=== PATIENT | male | born 1985 | race African-American/Black ===

== ENCOUNTER 2016-09-02 06:04 | Emergency (ER) | payer SELFPAY ==
[~2016-09-02] VITALS: Ht 182.9 cm; Wt 75.0 kg
[~2016-09-02 06:04] MED LIST: CYCL-36 PO; NAPR500 PO
[2016-09-02 06:09] VITALS: BP 141/86; PULSE 81; RESP 16; TEMP 97.9; O2SAT 100
[2016-09-02] MEDS ORDERED: CIPROFLOXACIN 500 MG TAB PO ONE (06:30)
[2016-09-02] MEDS ORDERED: TETANUS/DIPHTHERIA TOXOID ADULT 0.5 ML VIAL IM ONE (06:30)
--- NOTE | 2016-09-02 06:30 | PD ---
HPI Chief Complaint: Injury Time Seen by Provider: 06:24 Travel History International Travel<30 days: No Contact w/Intl Traveler<30days: No Traveled to known affect area: No History of Present Illness HPI 31-year-old black male presents to emergency department with complains of a plantar puncture wound to the right foot which occurred on Thursday. He states that he was working over a friend's house cutting the grass when he stepped on a piece of wood containing a nail. He states the nail punctured through his tennis shoe into his foot. He states that he jerked his foot quickly back removing the nail from his foot. He states that he did not think it wasn't very deep into the foot. He did not think it hit a bone. He states that the pain is still present but much improved from the initial injury. He presents for evaluation. He has not had a tetanus shot over 5 years. He denies any numbness or tingling. No foreign body sensation. Pain is mild to moderate. He denies any discharge. PFSH Past Medical History Medical History: Denies Significant Hx Immunizations Current: Yes (TB SHOT IN ALF July) Tetanus Vaccination: > 5 Years Influenza Vaccination: No Past Surgical History Surgical History: No Previous Surgery Social History Alcohol Use: Yes (OCCASIONALLY) Tobacco Use: No Substance Use: Yes (SMOKES MARIJUANA AT LEAST TWICE A DAY) Allergies-Medications (Allergen,Severity, Reaction): Coded Allergies: No Known Allergies (Verified , 09/02/16) Reported Meds & Prescriptions Reported Meds & Active Scripts Active Diclofenac Sodium DR (Diclofenac Sodium) 75 Mg Tabdr 75 Mg PO BID Cipro (Ciprofloxacin HCl) 500 Mg Tab 500 Mg PO BID Review of Systems Except as stated in HPI: all other systems reviewed are Neg Physical Exam Narrative GENERAL: This is a well-nourished, well-developed patient, in no apparent distress. SKIN: No rashes, ecchymoses or lesions. Warm and dry. HEAD: Atraumatic. Normocephalic. EYES: PERRL, EOMI, no discharge or injection. No scleral icterus. EARS: Clear NOSE: Nasal turbinates appear normal. THROAT: Mucosa pink and moist. Airway patent. NECK: Trachea midline. supple, moves head freely. LUNGS: Clear to auscultation. CV: Regular in rhythm. ABDOMEN: Soft nontender. EXT: No clubbing cyanosis or edema. Patient has a plantar puncture wound to the mid forefoot at the arch and the area of the base of the second metatarsal. There is a scant amount of serous drainage on palpation of the wound. Positive tenderness. No fluctuance or pointing. No pus. No obvious foreign body. Patient has intact sensation with good distal pulses. There is no erythema or warmth. Data Data Last Documented VS Vital Signs Date Time Temp Pulse Resp B/P Pulse Ox O2 Delivery O2 Flow Rate FiO2 09/02/16 06:09 97.9 81 16 141/86 100 Room Air Orders Tetanus/Diphtheria Tox Adult (Tetanus/Di (09/02/16 06:30) Ciprofloxacin (Cipro) (09/02/16 06:30) Foot, Complete ([id number]) (09/02/16 06:19) [facility] Medical Decision Making Medical Screen Exam Complete: Yes Emergency Medical Condition: Yes Medical Record Reviewed: Yes Interpretation(s) Right foot: Negative for fracture. No foreign body. Differential Diagnosis MDM: High Differential diagnoses: Fracture, sprain, strain, dislocation, contusion, neurovascular injury, plantar puncture wound Narrative Course Patient's tetanus status updated. Patient given Cipro 500 mg by mouth. X-ray of the right foot Diagnosis Primary Impression: Puncture wound of plantar aspect of right foot Additional Impressions: right plantar puncture wound right plantar puncture wound Patient Instructions: General Instructions Additional Instructions: Rest. Elevation. Daily wound care with soap, water, Neosporin. Cipro. Recheck with a primary care doctor or a restaurant kitchen and service manager in the next 2-3 days. Med/Other Pt SpecificInfo: Prescription(s) given Scripts Diclofenac Sodium DR 75 Mg Tabdr75 Mg PO BID #20 TAB Prov:Annemarie Britt MD 09/02/16 Ciprofloxacin (Cipro)500 Mg Tbd417 Mg PO BID #20 TAB Prov:Annemarie Britt MD 09/02/16 Disposition: 01 DISCHARGE HOME Condition: Stable Fede Aguilar Sep 02, 2016 06:30
[2016-09-02] MEDS ORDERED: CIPR-9 PO (06:31)
[2016-09-02] MEDS ORDERED: DICL75TA PO (06:31)
--- NOTE | 2016-09-02 07:08 | RADRPT ---
EXAM DATE/TIME: 09/02/2016 06:18 [facility] COMPARISON: No previous studies available for comparison. INDICATIONS : Foreign body. MEDICAL HISTORY : None. SURGICAL HISTORY : None. ENCOUNTER: Initial ACUITY: 3 days PAIN SCORE: 4/10 LOCATION: Right foot. FINDINGS: No definite fractures, or dislocations are identified. No definite lytic or sclerotic lesion is seen . The joint spaces are well maintained. There is no evidence for a radiopaque foreign body for techn ique. CONCLUSION: Unremarkable study. Sofiya Manjarrez MD on September 02, 2016 at 7:07 Board Certified Radiologist. This report was verified electronically.
== END 2016-09-02 06:54 | disposition home or self-care (01) ==
LOC: NEPK 06:04
DX: S91.331A Puncture wound without foreign body, right foot, initial encounter (principal); Z23 Encounter for immunization; W22.8XXA Striking against or struck by other objects, initial encounter; Y93.H9 Activity, other involving exterior property and land maintenance, building and construction; Y92.007 Garden or yard of unspecified non-institutional (private) residence as the place of occurrence of the external cause
CPT/HCPCS: 73630; 90471; 90714

== ENCOUNTER 2017-07-23 21:49 | Inpatient (IN) | payer SELFPAY ==
[~2017-07-23] VITALS: Ht 180.3 cm; Wt 75.0 kg
[~2017-07-23 21:49] MED LIST changes: +CIPR-9 PO; -CYCL-36 PO; +DICL75TA PO; -NAPR500 PO
[2017-07-23 22:01] VITALS: BP 162/86; PULSE 98; RESP 22; TEMP 99.1; O2SAT 100
[2017-07-23 22:16] VITALS: O2SAT 100
[2017-07-23 22:28] LABS: AUTOMATED NEUTROPHIL # 13.8 TH/MM3 (1.8-7.7); BASOPHIL % 0.3 % (0.0-2.0); EOSINOPHIL % 0.1 % (0.0-4.0); HEMOGLOBIN 14.1 GM/DL (13.0-17.0); LYMPH % 8.5 % (9.0-44.0); LYMPHOCYTE # 1.3 TH/MM3 (1.0-4.8); MEAN CELL VOLUME 87.2 FL (80.0-100.0); MEAN CORPUSCULAR HEMOGLOBIN 28.6 PG (27.0-34.0); MEAN CORPUSCULAR HGB CONC 32.8 % (32.0-36.0); MONO % 4.3 % (0.0-8.0); MONOCYTE # 0.7 TH/MM3 (0-0.9); NEUT % 86.8 % (16.0-70.0); PLATELET COUNT 249 TH/MM3 (150-450); RED BLOOD COUNT 4.93 MIL/MM3 (4.50-5.90); RED CELL DISTRIBUTION WIDTH 15.4 % (11.6-17.2); WHITE BLOOD COUNT 15.9 TH/MM3 (4.0-11.0)
--- NOTE | 2017-07-23 22:44 | PD ---
HPI Chief Complaint: Abdominal Pain Time Seen by Provider: 22:29 Travel History International Travel<30 days: No Contact w/Intl Traveler<30days: No Traveled to known affect area: No History of Present Illness HPI 31-year-old male complains of abdominal pain. 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 Patient states that he has increasing umbilical hernia pain for the past 3 days. Patient states that he has been sweating for the past few days. Patient denies any headache. Patient denies earache or sore throat. Patient denies any coughing congestion. Patient stated the pain is sharp pain localized around umbilical hernia area. Patient denies any pain radiation. Patient denies any nausea vomiting diarrhea. Patient denies any dysuria or frequency. On a scale from 1-10 the pain is a 10. PFSH Past Medical History Gastrointestinal Disorders: Yes (umbilical hernia) Immunizations Current: Yes (TB SHOT IN CORRECTION July) Tetanus Vaccination: < 5 Years Influenza Vaccination: No Past Surgical History Surgical History: No Previous Surgery Social History Alcohol Use: Yes (OCCASIONALLY) Tobacco Use: No Substance Use: Yes (SMOKES MARIJUANA AT LEAST TWICE A DAY) Allergies-Medications (Allergen,Severity, Reaction): Coded Allergies: No Known Allergies (Verified Adverse Reaction, Unknown, 07/23/17) Reported Meds & Prescriptions Reported Meds & Active Scripts Active No Active Prescriptions or Reported Medications Review of Systems General / Constitutional: No: Fever Eyes: No: Visual changes HENT: No: Headaches Cardiovascular: No: Chest Pain or Discomfort Respiratory: No: Shortness of Breath Gastrointestinal: Positive: Abdominal Pain Genitourinary: No: Dysuria Musculoskeletal: No: Pain Skin: No Rash Neurologic: No: Weakness Psychiatric: No: Depression Endocrine: No: Polydipsia Hematologic/Lymphatic: No: Easy Bruising Physical Exam Narrative GENERAL: Well-nourished, well-developed patient. SKIN: Focused skin assessment warm/dry. HEAD: Normocephalic. EYES: No scleral icterus. No injection or drainage. NECK: Supple, trachea midline. No JVD or lymphadenopathy. CARDIOVASCULAR: Regular rate and rhythm without murmurs, gallops, or rubs. RESPIRATORY: Breath sounds equal bilaterally. No accessory muscle use. GASTROINTESTINAL: Patient has small soft umbilical hernia is tender on palpation. The hernia seems to be reducible. The hernia however regained the same size after pressure was relieved from the area. patient has severe pain on palpation. Patient has diffuse tenderness over the whole abdomen. Patient has guarding of the abdomen. Hypoactive bowel sounds. MUSCULOSKELETAL: No cyanosis, or edema. BACK: Nontender without obvious deformity. No CVA tenderness. Neurologic exam normal. Data Data Last Documented VS Vital Signs Date Time Temp Pulse Resp B/P (MAP) Pulse Ox O2 Delivery O2 Flow Rate FiO2 07/23/17 22:16 100 Room Air 07/23/17 22:01 99.1 98 22 162/86 (111) Orders Orders Complete Blood Count With Diff (07/23/17 22:15) Comprehensive Metabolic Panel (07/23/17 22:15) Urinalysis - C+S If Indicated (07/23/17 22:15) Iv Access Insert/Monitor (07/23/17 22:15) Oxygen Administration (07/23/17 22:15) Oximetry (07/23/17 22:15) Lipase (07/23/17 22:15) Sodium Chlor 0.9% 1000 Ml Inj (Ns 1000 M (07/23/17 22:45) Morphine Inj (Morphine Inj) (07/23/17 22:45) Ondansetron Inj (Zofran Inj) (07/23/17 22:45) Ct Abd/Pel W/O Iv Contrast (07/23/17 22:43) Labs Laboratory Tests Test 07/23/17 22:17 07/23/17 22:20 White Blood Count 15.9 TH/MM3 Red Blood Count 4.93 MIL/MM3 Hemoglobin 14.1 GM/DL Hematocrit 43.0 % Mean Corpuscular Volume 87.2 FL Mean Corpuscular Hemoglobin 28.6 PG Mean Corpuscular Hemoglobin Concent 32.8 % Red Cell Distribution Width 15.4 % Platelet Count 249 TH/MM3 Mean Platelet Volume 8.0 FL Neutrophils (%) (Auto) 86.8 % Lymphocytes (%) (Auto) 8.5 % Monocytes (%) (Auto) 4.3 % Eosinophils (%) (Auto) 0.1 % Basophils (%) (Auto) 0.3 % Neutrophils # (Auto) 13.8 TH/MM3 Lymphocytes # (Auto) 1.3 TH/MM3 Monocytes # (Auto) 0.7 TH/MM3 Eosinophils # (Auto) 0.0 TH/MM3 Basophils # (Auto) 0.0 TH/MM3 CBC Comment DIFF FINAL Differential Comment Blood Urea Nitrogen 14 MG/DL Creatinine 1.22 MG/DL Random Glucose 128 MG/DL Total Protein 8.0 GM/DL Albumin 4.1 GM/DL Calcium Level 9.2 MG/DL Alkaline Phosphatase 91 U/L Aspartate Amino Transf (AST/SGOT) 15 U/L Alanine Aminotransferase (ALT/SGPT) 15 U/L Total Bilirubin 0.6 MG/DL Sodium Level 142 MEQ/L Potassium Level 3.7 MEQ/L Chloride Level 106 MEQ/L Carbon Dioxide Level 27.0 MEQ/L Anion Gap 9 MEQ/L Estimat Glomerular Filtration Rate 83 ML/MIN Lipase 67 U/L Urine Color YELLOW Urine Turbidity CLEAR Urine pH 5.5 Urine Specific [place] 1.039 Urine Protein 30 mg/dL Urine Glucose (UA) NEG mg/dL Urine Ketones 10 mg/dL Urine Occult Blood SMALL Urine Nitrite NEG Urine Bilirubin NEG Urine Urobilinogen 2.0 MG/DL Urine Leukocyte Esterase NEG Urine RBC 2 /hpf Urine WBC 2 /hpf Urine Mucus MANY /lpf Microscopic Urinalysis Comment CULT NOT INDICATED MDM Medical Decision Making Medical Screen Exam Complete: Yes Emergency Medical Condition: Yes Interpretation(s) 23:[address] scan abdomen and pelvis shows abnormal examination including moderate amount of free fluid in the pelvis and multiple small collection of free air in the peritoneum predominantly in the right upper quadrant. Induration of the fat in a small umbilical hernia with no loop of bowel in the hernia. Differential Diagnosis Differential diagnosis including incarcerated umbilical hernia, strangulated umbilical hernia. Narrative Course 31-year-old male with abdominal pain. Normal saline solution 1 25 cc an hour. Morphine 2 mg IV. Zofran 4 mg IV. Pepcid 20 mg IV. Repeated morphine 2 mg IV. Zosyn 3.375 g IV. Diagnosis Primary Impression: Bowel perforation Admitting Information Admitting Physician Requests: Admit Scripts No Active Prescriptions or Reported Meds Russ Henry MD Jul 23, 2017 22:44
[2017-07-23] MEDS ORDERED: MORPHINE SULFATE 2 MG/ML INJ IV PUSH ONE ×2 (22:45→23:45)
[2017-07-23] MEDS ORDERED: ONDANSETRON HCL 4 MG/2 ML VIAL IV PUSH ONE (22:45)
[2017-07-23] MEDS: SODIUM CHLOR 0.9% 1000 ML INJ 1,000 ML IV SCH (22:47)
[2017-07-23 22:48] LABS: ALBUMIN 4.1 GM/DL (3.4-5.0); AST (GOT) 15 U/L (15-37); BLOOD UREA NITROGEN 14 MG/DL (7-18); CALCIUM 9.2 MG/DL (8.5-10.1); CHLORIDE 106 MEQ/L (98-107); CREATININE 1.22 MG/DL (0.60-1.30); GLOMERULAR FILTRATION RATE 83 ML/MIN (>89); GLUCOSE,RANDOM 128 MG/DL (74-106); SODIUM (NA) 142 MEQ/L (136-145)
[2017-07-23 22:49] LABS: ALT (GPT) 15 U/L (12-78)
[2017-07-23 22:51] LABS: ALKALINE PHOSPHATASE 91 U/L (45-117); TOTAL BILIRUBIN ADULT 0.6 MG/DL (0.2-1.0)
[2017-07-23 22:59] LABS: BILIRUBIN, URINE NEG (NEG); BLOOD, URINE SMALL (NEG); GLUCOSE,URINE NEG (NEG); KETONE, URINE 10 mg/dL (NEG); MUCUS URINE MANY /lpf (OCC); NITRITE,URINE NEG (NEG); PH, URINE 5.5 (5.0-8.5); URINE COLOR YELLOW (YELLW/STRAW); URINE LEUKOCYTE ESTERASE NEG (NEG)
--- NOTE | 2017-07-23 23:17 | RADRPT ---
EXAM DATE/TIME: 07/23/2017 22:50 [facility] COMPARISON: No previous studies available for comparison. INDICATIONS : Umbilical hernia, pain. ORAL CONTRAST: No oral contrast ingested. RADIATION DOSE: 6.64 CTDIvol (mGy) MEDICAL HISTORY : Hernia, umbilical. SURGICAL HISTORY : None. ENCOUNTER: Initial ACUITY: 2 weeks PAIN SCALE: 8/10 LOCATION: Umbilical TECHNIQUE: Volumetric scanning of the abdomen and pelvis was performed. Using automated exposure control and ad justment of the mA and/or kV according to patient size, radiation dose was kept as low as reasonably achievable to obtain optimal diagnostic quality images. DICOM format image data is available electro nically for review and comparison. FINDINGS: Examinations performed without intravenous and without contrast which limits visualization of the abd ominal pelvic organs. The examination is abnormal demonstrating several small collections of gas in the peritoneum, most of which are located in the right upper quadrant about the liver, in Barajas's pouch, and in the portal region. There is also a moderate amount of free fluid in the dependent port ion of the pelvis measuring up to 3.5 cm in thickness. No dilated loops of small or large bowel. Th ere is a fat-containing umbilical hernia with induration of the fat within the hernia. No evidence o f loops of bowel in the umbilical hernias; the separation between the rectus muscles measures 1.7 cm. The liver, gallbladder, kidneys, spleen, pancreas, and aorta are unremarkable for noncontrast techniq ue. The visualized lower lungs are clear. Wide windows for bony detail demonstrate the osseous stru ctures to be intact.. CONCLUSION: 1. Abnormal examination demonstrating a moderate amount of free fluid in the pelvis and multiple smal l collections of free air in the peritoneum predominantly in the right upper quadrant. The cause of the free air is not apparent from the examination, but the location and the right upper quadrant sugg ests possible upper GI origin.. 2. Induration of the fat with in a small umbilical hernia, but no loops of bowel within the hernia. Charles Tavares MD on July 23, 2017 at 23:08 Board Certified Radiologist. This report was verified electronically.
[2017-07-23] MEDS ORDERED: PIPERACIL-TAZO 3.375 GM PREMIX 50 ML IV ONE (23:45)
[2017-07-23] MEDS ORDERED: PANTOPRAZOLE SODIUM 40 MG VIAL IV PUSH ONE (23:45)
[2017-07-23 23:58] VITALS: BP 141/82; PULSE 77; RESP 18; O2SAT 99
[2017-07-24] VITALS: BP 129/78; PULSE 91; RESP 20; O2SAT 99
[2017-07-24] MEDS ORDERED: HYDROmorphone HCL PF 2 MG/ML VIAL IV PUSH ONE (00:30)
[2017-07-24] MEDS: BUPIVACAINE/EPINEPHRINE 0.25% 50 ML VIAL ONE ×2 (00:41→01:23)
--- NOTE | 2017-07-24 00:48 | HHI.HP ---
HPI Service General Surgery Primary Care Physician No Primary Care Physician Admission Diagnosis Bowel perforation Chief Complaint: Abdominal pain History of Present Illness Christiano is a 31-year-old male who complains of persistent severe abdominal pain for 2-3 days mostly centered around the umbilicus where he has an umbilical hernia which has been present since . He does occasionally have to reduce the umbilical hernia which he has been doing over the last couple of days as well. There is less of a bulge then there has been in the past, but the pain at the umbilicus is significantly worse. He had one episode of clear emesis after morphine administration in the ED but otherwise no vomiting. He does not use anti-inflammatories chronically. In the emergency department, he was noted by Dr. Henry to have diffuse rigidity. CBC reveals leukocytosis of 16, [address] of the abdomen and pelvis showed small amounts of free air mostly in the right upper abdomen and some free fluid present. The etiology is not obvious on CT. Review of Systems Constitutional: DENIES: Fever, Chills Eyes: DENIES: Eye pain, Vision loss Ears, nose, mouth, throat: DENIES: Oral lesions, Throat pain Respiratory: DENIES: Cough, Shortness of breath Cardiovascular: DENIES: Chest pain, Palpitations Gastrointestinal: COMPLAINS OF: Abdominal pain Integumentary: DENIES: Pruritus, Rash Neurologic: DENIES: Paresthesias, Seizures Past Family Social History Past Medical History Umbilical hernia since Past Surgical History None Reported Medications None Allergies: Coded Allergies: No Known Allergies (Verified Adverse Reaction, Unknown, 07/23/17) Active Ordered Medications Current Medications Medications (Trade) Dose Ordered Sig/[place] Start Time Stop Time Status Last Admin Sodium Chloride 1,000 ml @ 125 mls/hr Q8H IV 07/23/17 22:45 07/23/17 22:47 Family History Noncontributory Social History Occasional alcohol use. Smokes marijuana. Physical Exam Vital Signs Vital Signs Date Time Temp Pulse Resp B/P (MAP) Pulse Ox O2 Delivery O2 Flow Rate FiO2 07/24/17 00:00 91 20 129/78 (95) 99 Room Air 07/23/17 23:58 77 18 141/82 (101) 99 Room Air 07/23/17 22:16 100 Room Air 07/23/17 22:16 100 Room Air 07/23/17 22:01 99.1 98 22 162/86 (111) 100 Physical Exam GENERAL: Awake and alert. Appears in some pain. Cooperative. HEAD: Normocephalic. Atraumatic. EYES: Pupils equal round and reactive to light bilaterally. No scleral icterus. ENT: Moist oral mucosa. NECK: Trachea midline. CHEST: Lungs clear to auscultation bilaterally with no wheezing or rhonchi. No respiratory distress. CARDIOVASCULAR: Regular rate and rhythm. ABDOMEN: Flat, rigid. Moderate tenderness in the lower abdomen. Diffusely despite the rigidity he is not all that tender. Severe tenderness at the umbilicus although the hernia is at least partially reducible and there is no significant bulge and no skin changes. EXTREMITIES: No cyanosis or edema. SKIN: Warm, slightly diaphoretic, nonjaundiced. Laboratory Laboratory Tests Test 07/23/17 22:17 07/23/17 22:20 White Blood Count 15.9 Red Blood Count 4.93 Hemoglobin 14.1 Hematocrit 43.0 Mean Corpuscular Volume 87.2 Mean Corpuscular Hemoglobin 28.6 Mean Corpuscular Hemoglobin Concent 32.8 Red Cell Distribution Width 15.4 Platelet Count 249 Mean Platelet Volume 8.0 Neutrophils (%) (Auto) 86.8 Lymphocytes (%) (Auto) 8.5 Monocytes (%) (Auto) 4.3 Eosinophils (%) (Auto) 0.1 Basophils (%) (Auto) 0.3 Neutrophils # (Auto) 13.8 Lymphocytes # (Auto) 1.3 Monocytes # (Auto) 0.7 Eosinophils # (Auto) 0.0 Basophils # (Auto) 0.0 CBC Comment DIFF FINAL Differential Comment Blood Urea Nitrogen 14 Creatinine 1.22 Random Glucose 128 Total Protein 8.0 Albumin 4.1 Calcium Level 9.2 Alkaline Phosphatase 91 Aspartate Amino Transf (AST/SGOT) 15 Alanine Aminotransferase (ALT/SGPT) 15 Total Bilirubin 0.6 Sodium Level 142 Potassium Level 3.7 Chloride Level 106 Carbon Dioxide Level 27.0 Anion Gap 9 Estimat Glomerular Filtration Rate 83 Lipase 67 Urine Color YELLOW Urine Turbidity CLEAR Urine pH 5.5 Urine Specific [place] 1.039 Urine Protein 30 Urine Glucose (UA) NEG Urine Ketones 10 Urine Occult Blood SMALL Urine Nitrite NEG Urine Bilirubin NEG Urine Urobilinogen 2.0 Urine Leukocyte Esterase NEG Urine RBC 2 Urine WBC 2 Urine Mucus MANY Microscopic Urinalysis Comment CULT NOT INDICATED Result Diagram: 07/23/17221607/23/172216 Imaging Last Impressions Abdomen/Pelvis CT 07/23/17 2243 Signed Impressions: Service Date/Time: July 22:50 - CONCLUSION: 1. Abnormal examination demonstrating a moderate amount of free fluid in the pelvis and multiple small collections of free air in the peritoneum predominantly in the right upper quadrant. The cause of the free air is not apparent from the examination, but the location and the right upper quadrant suggests possible upper GI origin.. 2. Induration of the fat with in a small umbilical hernia, but no loops of bowel within the hernia. MD Kirit Walker VTE Risk Assessment Caprini VTE Risk Assessment: No/Low Risk (score <= 1) Caprini Risk Assessment Model Point Value = 1 Point Value = 2 Point Value = 3 Point Value = 5 Age 41-60 Minor surgery BMI > 25 kg/m2 Swollen legs Varicose veins or History of unexplained or recurrent spontaneous Oral contraceptives or hormone replacement Sepsis (< 1 month) Serious lung disease, including pneumonia (< 1 month) Abnormal pulmonary function Acute myocardial infarction Congestive heart failure (< 1 month) History of inflammatory bowel disease Medical patient at bed rest Age 61-74 Arthroscopic surgery Major open surgery (> 45 min) Laparoscopic surgery (> 45 min) Malignancy Confined to bed (> 72 hours) Immobilizing plaster cast Central venous access Age >= 75 History of VTE Family history of VTE Factor V Leiden Prothrombin [id number] Lupus anticoagulant Anticardiolipin antibodies Elevated serum homocysteine Heparin-induced thrombocytopenia Other congenital or acquired thrombophilia Stroke (< 1 month) Elective arthroplasty Hip, pelvis, or leg fracture Acute spinal cord injury (< 1 month) Prophylaxis Regimen Total Risk Factor Score Risk Level Prophylaxis Regimen 0-1 Low Early ambulation 2 Moderate Order ONE of the following: *Sequential Compression Device (SCD) *Heparin 5000 units SQ BID 3-4 Higher Order ONE of the following medications: *Heparin 5000 units SQ TID *Enoxaparin/Lovenox 40 mg SQ daily (WT < 150 kg, CrCl > 30 mL/min) *Enoxaparin/Lovenox 30 mg SQ daily (WT < 150 kg, CrCl > 10-29 mL/min) *Enoxaparin/Lovenox 30 mg SQ BID (WT < 150 kg, CrCl > 30 mL/min) AND/OR *Sequential Compression Device (SCD) 5 or more Highest Order ONE of the following medications: *Heparin 5000 units SQ TID (Preferred with Epidurals) *Enoxaparin/Lovenox 40 mg SQ daily (WT < 150 kg, CrCl > 30 mL/min) *Enoxaparin/Lovenox 30 mg SQ daily (WT < 150 kg, CrCl > 10-29 mL/min) *Enoxaparin/Lovenox 30 mg SQ BID (WT < 150 kg, CrCl > 30 mL/min) AND *Sequential Compression Device (SCD) Assessment and Plan Assessment and Plan 31-year-old male with perforated viscus and umbilical hernia, with generalized peritonitis. The etiology of his perforation is not certain, although perforated peptic ulcer and focal small bowel perforation secondary to strangulation are in the differential. I recommend to proceed to the operating room for diagnostic laparoscopy possible laparotomy and bowel resection if required. I discussed the situation and the rationale for surgery in detail with the patient. He does desire to proceed. Discussed Condition With Yakov Albarran MD Jul 24, 2017 00:47
--- NOTE | 2017-07-24 02:57 | PD.OP ---
cc: Yakov Bennett MD Operative Report Date of Surgery: Jul 24, 2017 Preoperative Diagnosis: (1) Perforated viscus Postoperative Diagnosis: (1) Perforated duodenal bulb ulcer Procedure: Laparoscopic repair of perforated duodenal ulcer, washout, drain placement Anesthesia: VONDA Surgeon: Yakov Bennett Voice Network Engineer(s): Tremayne GALINDO Operation and Findings: EBL: 20cc Operative findings: Small <1cm ulcer anterior duodenal bulb with associated purulent fluid in RUQ and exudate. Procedure in detail: The patient was taken to the operating room and placed in the supine position. General anesthesia was induced and the abdomen was prepped and draped in usual sterile fashion. A surgical timeout was performed to verify correct patient procedure and site. Local anesthetic was injected in the skin and subcutaneous tissue in the left midabdomen and a 5 mm incision made. The Optiview trocar was inserted with the laparoscope and the abdomen directly entered. The abdomen was insufflated to 15 mmHg with CO2 gas which the patient tolerated well. There is noted to be purulent fluid in the upper abdomen. Two 5 mm trochars were placed, one in the left upper abdomen and one inferior to the umbilicus. There was purulent fluid in the upper abdomen under the liver especially in the area of the pylorus. It was not immediately identified a perforation. The appendix appeared normal as did the sigmoid colon. The patient was placed in reverse Trendelenburg position and attention turned again turned to the upper abdomen. After further suctioning and evaluation there was noted to be pinhole size perforation in the duodenal bulb under the liver. This was closed laparoscopically with 2 simple interrupted 3- 0 silk sutures. There was good closure with no further leak. I attempted to place a piece of omentum to past the area, however, the omentum was thickened and the perforation high up under the liver and I was unable to place an omental patch. The entire abdomen was copiously irrigated with attention to the upper abdomen until clear fluid returned. A 19 Nepali round drain was placed through the left lateral 5 mm port site placed under the liver in the area of the perforation. The abdomen was desufflated. Port sites closed with subcuticular 4-0 Monocryl and Dermabond. The drain was secured with 3-0 nylon. The NG tube was secured in place. The patient tolerated the procedure well and was extubated and taken to PACU in stable condition. Yakov Bennett MD Jul 24, 2017 02:57
[2017-07-24] MEDS ORDERED: diphenhydrAMINE HCL 50 MG/ML VIAL IV PUSH PRN (03:00)
[2017-07-24] MEDS ORDERED: ONDANSETRON HCL 4 MG/2 ML VIAL IV PUSH PRN (03:00)
[2017-07-24] MEDS ORDERED: DO NOT ADM ANY ANTICOAGULANT DRUGS PRN (03:00)
[2017-07-24] MEDS ORDERED: NALOXONE HCL 0.4 MG/ML AMP IV PUSH PRN (03:00)
[2017-07-24] MEDS ORDERED: Post-op Orders (for Pharmacy) XX ONE (03:00)
[2017-07-24] MEDS ORDERED: MORPHINE SULFATE 2 MG/ML INJ IV PUSH PRN (03:00)
[2017-07-24] MEDS ORDERED: BENZOCAINE 20% ORAL SPR 60 ML CAN MT PRN (03:00)
[2017-07-24] MEDS: LACTATED RINGER'S 1000 ML INJ 1,000 ML IV SCH ×3 (03:10→22:47)
[2017-07-24] MEDS ORDERED: MIDAZOLAM HCL 2 MG/2 ML VIAL ONE (03:23)
[2017-07-24] MEDS: ACETAMINOPHEN 1000 MG/100 ML 100 ML IV SCH ×4 (04:30→20:15)
[2017-07-24 06:09] VITALS: BP 133/74; PULSE 76; RESP 18; TEMP 96.7; O2SAT 95
[2017-07-24] MEDS: PIPERACIL-TAZO 3.375 GM PREMIX 50 ML IV SCH ×4 (06:29→23:20)
[2017-07-24] MEDS: SODIUM CHLOR 0.9% 1000 ML INJ 1,000 ML IV SCH ×3 (06:45→22:45)
[2017-07-24 08:00] VITALS: BP 142/78; PULSE 86; RESP 18; TEMP 97.7; O2SAT 100
[2017-07-24] MEDS: PANTOPRAZOLE SODIUM 40 MG VIAL IV PUSH SCH ×2 (08:49→20:15)
[2017-07-24] MEDS: SODIUM CHLORIDE 0.9% FLUSH 10 ML FLUSH IV FLUSH SCH ×2 (08:50→20:16)
--- NOTE | 2017-07-24 09:01 | HHI.PR ---
Subjective Subjective Notes Abdominal pain significantly improved. NGT in place to suction. Objective Vitals/I&O Vital Signs Date Time Temp Pulse Resp B/P (MAP) Pulse Ox O2 Delivery O2 Flow Rate FiO2 07/24/17 08:00 97.7 86 18 142/78 (99) 100 07/24/17 05:00 Nasal Cannula 2 Labs Laboratory Tests Test 07/23/17 22:17 07/23/17 22:20 White Blood Count 15.9 Red Blood Count 4.93 Hemoglobin 14.1 Hematocrit 43.0 Mean Corpuscular Volume 87.2 Mean Corpuscular Hemoglobin 28.6 Mean Corpuscular Hemoglobin Concent 32.8 Red Cell Distribution Width 15.4 Platelet Count 249 Mean Platelet Volume 8.0 Neutrophils (%) (Auto) 86.8 Lymphocytes (%) (Auto) 8.5 Monocytes (%) (Auto) 4.3 Eosinophils (%) (Auto) 0.1 Basophils (%) (Auto) 0.3 Neutrophils # (Auto) 13.8 Lymphocytes # (Auto) 1.3 Monocytes # (Auto) 0.7 Eosinophils # (Auto) 0.0 Basophils # (Auto) 0.0 CBC Comment DIFF FINAL Differential Comment Blood Urea Nitrogen 14 Creatinine 1.22 Random Glucose 128 Total Protein 8.0 Albumin 4.1 Calcium Level 9.2 Alkaline Phosphatase 91 Aspartate Amino Transf (AST/SGOT) 15 Alanine Aminotransferase (ALT/SGPT) 15 Total Bilirubin 0.6 Sodium Level 142 Potassium Level 3.7 Chloride Level 106 Carbon Dioxide Level 27.0 Anion Gap 9 Estimat Glomerular Filtration Rate 83 Lipase 67 Urine Color YELLOW Urine Turbidity CLEAR Urine pH 5.5 Urine Specific Kite 1.039 Urine Protein 30 Urine Glucose (UA) NEG Urine Ketones 10 Urine Occult Blood SMALL Urine Nitrite NEG Urine Bilirubin NEG Urine Urobilinogen 2.0 Urine Leukocyte Esterase NEG Urine RBC 2 Urine WBC 2 Urine Mucus MANY Microscopic Urinalysis Comment CULT NOT INDICATED Radiology Last Impressions Abdomen/Pelvis CT 07/23/17 9603 Signed Impressions: Service Date/Time: July 22:50 - CONCLUSION: 1. Abnormal examination demonstrating a moderate amount of free fluid in the pelvis and multiple small collections of free air in the peritoneum predominantly in the right upper quadrant. The cause of the free air is not apparent from the examination, but the location and the right upper quadrant suggests possible upper GI origin.. 2. Induration of the fat with in a small umbilical hernia, but no loops of bowel within the hernia. Charles Tavares MD Narrative Exam NAD NG in place LATASHA to bulb suction cloudy serous output Abd: inc c/d/i A/P Assessment and Plan 31 yo M POD 0 lap repair of perforated duodenal ulcer. Doing well post op. Cont LATASHA drain and NGT. Do not manipulate NGT. OK for ice chips sparingly. Cont IV protonix and IV antibiotics. Yakov Bennett MD Jul 24, 2017 09:01
[2017-07-24 12:00] VITALS: BP 122/82; PULSE 58; RESP 17; TEMP 96.9; O2SAT 100
[2017-07-24] MEDS ORDERED: ONDANSETRON HCL 4 MG/2 ML VIAL IV ONE (12:00)
[2017-07-24] MEDS ORDERED: ROCURONIUM INJ 50 MG/5 ML SYRINGE IV PUSH ONE (12:00)
[2017-07-24] MEDS ORDERED: DEXAMETHASONE SOD PHOS 4 MG/ML VIAL IV ONE (12:00)
[2017-07-24] MEDS ORDERED: SUCCINYLCHOLINE CHLORIDE 200 MG/10 ML VIAL IV ONE (12:00)
[2017-07-24] MEDS ORDERED: GLYCOPYRROLATE 1 MG/5 ML SYRINGE IV PUSH ONE (12:00)
[2017-07-24] MEDS ORDERED: LIDOCAINE HCL 1% PF 5 ML SYRINGE OTHER ONE (12:00)
[2017-07-24] MEDS ORDERED: LACTATED RINGER'S 1000 ML INJ 2,000 ML IV ONE (12:00)
[2017-07-24] MEDS ORDERED: NEOSTIGMINE 5 MG/5 ML SYRINGE IV PUSH ONE (12:00)
[2017-07-24] MEDS ORDERED: PROPOFOL 200 MG/20 ML AMP IV ONE (12:00)
[2017-07-24] MEDS: MORPHINE SULFATE 2 MG/ML INJ IV PUSH PRN ×2 (14:36→18:12)
[2017-07-24 16:00] VITALS: BP 138/92; PULSE 64; RESP 18; TEMP 98.8; O2SAT 99
[2017-07-24 20:00] VITALS: BP 138/83; PULSE 65; RESP 18; TEMP 99.6; O2SAT 100
[2017-07-25] VITALS (8 sets, daily range): BP systolic 121–140; BP diastolic 75–89; PULSE 56–79; RESP 16–18; TEMP 97.5–99.4; O2SAT 97–100
[2017-07-25] MEDS: ENOXAPARIN SODIUM 40 MG/0.4 ML SYRINGE SQ SCH (01:59)
[2017-07-25] MEDS: PIPERACIL-TAZO 3.375 GM PREMIX 50 ML IV SCH ×3 (04:51→17:23)
[2017-07-25] MEDS: MORPHINE SULFATE 2 MG/ML INJ IV PUSH PRN ×2 (04:56→08:09)
[2017-07-25] MEDS: SODIUM CHLOR 0.9% 1000 ML INJ 1,000 ML IV SCH ×3 (06:45→22:45)
[2017-07-25 07:00] LABS: AUTOMATED NEUTROPHIL # 11.1 TH/MM3 (1.8-7.7); BASOPHIL # 0.1 TH/MM3 (0-0.2); BASOPHIL % 0.5 % (0.0-2.0); EOSINOPHIL % 0.1 % (0.0-4.0); HEMATOCRIT 41.4 % (39.0-51.0); HEMOGLOBIN 13.7 GM/DL (13.0-17.0); LYMPH % 18.8 % (9.0-44.0); LYMPHOCYTE # 2.7 TH/MM3 (1.0-4.8); MEAN CELL VOLUME 87.4 FL (80.0-100.0); MEAN CORPUSCULAR HEMOGLOBIN 28.9 PG (27.0-34.0); MEAN CORPUSCULAR HGB CONC 33.1 % (32.0-36.0); MEAN PLATELET VOLUME 8.9 FL (7.0-11.0); MONO % 4.1 % (0.0-8.0); MONOCYTE # 0.6 TH/MM3 (0-0.9); NEUT % 76.5 % (16.0-70.0); PLATELET COUNT 208 TH/MM3 (150-450); RED BLOOD COUNT 4.74 MIL/MM3 (4.50-5.90); RED CELL DISTRIBUTION WIDTH 15.2 % (11.6-17.2); WHITE BLOOD COUNT 14.5 TH/MM3 (4.0-11.0)
[2017-07-25 07:30] LABS: BICARBONATE 26.5 MEQ/L (21.0-32.0); CALCIUM 8.7 MG/DL (8.5-10.1); CREATININE 1.03 MG/DL (0.60-1.30)
[2017-07-25] MEDS: PANTOPRAZOLE SODIUM 40 MG VIAL IV PUSH SCH ×2 (08:09→20:59)
[2017-07-25] MEDS: LACTATED RINGER'S 1000 ML INJ 1,000 ML IV SCH ×2 (08:09→20:56)
[2017-07-25] MEDS: SODIUM CHLORIDE 0.9% FLUSH 10 ML FLUSH IV FLUSH SCH ×2 (08:09→21:00)
[2017-07-25] MEDS: MORPHINE SULFATE 4 MG/ML INJ IV PUSH PRN ×4 (11:04→20:59)
[2017-07-26] VITALS (9 sets, daily range): BP systolic 124–154; BP diastolic 76–95; PULSE 64–93; RESP 17–18; TEMP 97.5–98.8; O2SAT 98–100
[2017-07-26] MEDS: PIPERACIL-TAZO 3.375 GM PREMIX 50 ML IV SCH ×4 (00:07→17:12)
[2017-07-26] MEDS: MORPHINE SULFATE 4 MG/ML INJ IV PUSH PRN ×3 (00:11→20:15)
[2017-07-26] MEDS: ENOXAPARIN SODIUM 40 MG/0.4 ML SYRINGE SQ SCH (02:11)
[2017-07-26] MEDS: LACTATED RINGER'S 1000 ML INJ 1,000 ML IV SCH ×3 (05:41→20:14)
[2017-07-26] MEDS: SODIUM CHLOR 0.9% 1000 ML INJ 1,000 ML IV SCH ×3 (06:45→22:45)
[2017-07-26] MEDS: SODIUM CHLORIDE 0.9% FLUSH 10 ML FLUSH IV FLUSH SCH ×2 (08:36→20:14)
[2017-07-26] MEDS: PANTOPRAZOLE SODIUM 40 MG VIAL IV PUSH SCH ×2 (08:41→20:14)
[2017-07-26] MEDS: MORPHINE SULFATE 2 MG/ML INJ IV PUSH PRN ×2 (09:12→17:14)
--- NOTE | 2017-07-26 11:48 | HHI.PR ---
Subjective Subjective Notes pt comfortable no flatus Objective Vitals/I&O Vital Signs Date Time Temp Pulse Resp B/P (MAP) Pulse Ox O2 Delivery O2 Flow Rate FiO2 07/26/17 09:31 16 07/26/17 08:01 97.9 66 154/95 (114) 98 07/26/17 07:00 Room Air 07/24/17 05:00 2 Radiology Last Impressions Abdomen/Pelvis CT 07/23/17 2243 Signed Impressions: Service Date/Time: July 22:50 - CONCLUSION: 1. Abnormal examination demonstrating a moderate amount of free fluid in the pelvis and multiple small collections of free air in the peritoneum predominantly in the right upper quadrant. The cause of the free air is not apparent from the examination, but the location and the right upper quadrant suggests possible upper GI origin.. 2. Induration of the fat with in a small umbilical hernia, but no loops of bowel within the hernia. Charles Tavares MD Abdomen: Post-op tenderness Extremities: Perfused Narrative Exam jose sang Wound Wound : Wound Location: Abdomen Appearance: Clean & Dry A/P Assessment and Plan s/p repair of perf ulcer doing well ugi in am if ok will start clears Chris Ramirez MD Jul 26, 2017 11:48
[2017-07-26] MEDS ORDERED: DIATRIZOATE MEGLUM/DIATRIZOATE SOD 120 ML BTL (for RAD DIAG) NG ONE (14:04)
--- NOTE | 2017-07-26 14:11 | RADRPT ---
EXAM DATE/TIME: 07/26/2017 12:47 [facility] COMPARISON: No previous studies available for comparison. INDICATIONS : Evaluation for leak post duodenal ulcer repair. FLUORO TIME: 4.2 minutes IMAGE COUNT: 22 CONTRAST: 1. MD Finch MEDICAL HISTORY : None. SURGICAL HISTORY : None. ENCOUNTER: Initial ACUITY: 1 day PAIN SCORE: 5/10 LOCATION: Left lower abdomen. FINDINGS: Preliminary film is unremarkable demonstrating an enteric tube with side-port just beyond the esophag ogastric junction, and a surgical drain overlying the midabdomen with tip projecting over the right i liac crest.. Examination of the swallowing function demonstrates no evidence of aspiration or penetration. The arielle dy of the esophagus is unremarkable. No reflux or hiatal hernia is identified. An NG tube is noted. P bree was first given Gastrografin to swallow, subsequently contrast administered through the enteri c tube. A total of 240 cc of Gastrografin was given through the NG tube. Contrast opacifies the stoma ch which is normal in appearance. There was a delay in emptying into the proximal small bowel. The du odenal bulb never fully opacifies or distends fully with contrast. The C-loop is normal. There is no evidence of contrast extravasation. Examination of the stomach demonstrates no evidence of intraluminal mass or extrinsic compression. T he gastric volume appears normal and there are no findings of ulceration. The mucosal pattern appear s normal. The visualized small bowel is unremarkable. CONCLUSION: No definite evidence for contrast extravasation. Isaac Mcdonnell MD on July 26, 2017 at 14:07 Board Certified Radiologist. This report was verified electronically.
[2017-07-27] VITALS (12 sets, daily range): BP systolic 138–153; BP diastolic 80–90; PULSE 59–76; RESP 17; TEMP 97.8–98.2; O2SAT 97–100
[2017-07-27] MEDS: PIPERACIL-TAZO 3.375 GM PREMIX 50 ML IV SCH ×5 (00:03→23:25)
[2017-07-27] MEDS: MORPHINE SULFATE 2 MG/ML INJ IV PUSH PRN ×3 (00:45→17:09)
[2017-07-27] MEDS: ENOXAPARIN SODIUM 40 MG/0.4 ML SYRINGE SQ SCH (02:53)
[2017-07-27] MEDS: LACTATED RINGER'S 1000 ML INJ 1,000 ML IV SCH ×2 (05:41→17:10)
[2017-07-27] MEDS: SODIUM CHLOR 0.9% 1000 ML INJ 1,000 ML IV SCH ×3 (06:45→22:45)
[2017-07-27 09:37] LABS: AUTOMATED NEUTROPHIL # 6.5 TH/MM3 (1.8-7.7); BASOPHIL % 0.5 % (0.0-2.0); EOSINOPHIL % 0.4 % (0.0-4.0); HEMATOCRIT 40.9 % (39.0-51.0); HEMOGLOBIN 13.7 GM/DL (13.0-17.0); LYMPH % 20.3 % (9.0-44.0); LYMPHOCYTE # 1.8 TH/MM3 (1.0-4.8); MEAN CELL VOLUME 86.7 FL (80.0-100.0); MEAN CORPUSCULAR HEMOGLOBIN 29.1 PG (27.0-34.0); MEAN CORPUSCULAR HGB CONC 33.5 % (32.0-36.0); MEAN PLATELET VOLUME 8.3 FL (7.0-11.0); MONO % 5.8 % (0.0-8.0); MONOCYTE # 0.5 TH/MM3 (0-0.9); PLATELET COUNT 246 TH/MM3 (150-450); RED BLOOD COUNT 4.72 MIL/MM3 (4.50-5.90); RED CELL DISTRIBUTION WIDTH 14.7 % (11.6-17.2); WHITE BLOOD COUNT 8.9 TH/MM3 (4.0-11.0)
[2017-07-27 10:13] LABS: BICARBONATE 24.4 MEQ/L (21.0-32.0); CALCIUM 8.7 MG/DL (8.5-10.1); CREATININE 0.93 MG/DL (0.60-1.30)
[2017-07-27] MEDS: SODIUM CHLORIDE 0.9% FLUSH 10 ML FLUSH IV FLUSH SCH ×2 (10:42→20:53)
[2017-07-27] MEDS: PANTOPRAZOLE SODIUM 40 MG VIAL IV PUSH SCH ×2 (10:42→20:42)
[2017-07-27] MEDS: MORPHINE SULFATE 4 MG/ML INJ IV PUSH PRN ×2 (10:43→20:42)
--- NOTE | 2017-07-27 11:37 | HHI.PR ---
Subjective Subjective Notes No complaints. UGI yesterday showed no evidence for leak. Objective Vitals/I&O Vital Signs Date Time Temp Pulse Resp B/P (MAP) Pulse Ox O2 Delivery O2 Flow Rate FiO2 07/27/17 08:04 62 07/27/17 07:58 98.2 17 147/86 (106) 100 07/26/17 20:00 Room Air 07/24/17 05:00 2 Labs Laboratory Tests Test 07/27/17 08:07 White Blood Count 8.9 Red Blood Count 4.72 Hemoglobin 13.7 Hematocrit 40.9 Mean Corpuscular Volume 86.7 Mean Corpuscular Hemoglobin 29.1 Mean Corpuscular Hemoglobin Concent 33.5 Red Cell Distribution Width 14.7 Platelet Count 246 Mean Platelet Volume 8.3 Neutrophils (%) (Auto) 73.0 Lymphocytes (%) (Auto) 20.3 Monocytes (%) (Auto) 5.8 Eosinophils (%) (Auto) 0.4 Basophils (%) (Auto) 0.5 Neutrophils # (Auto) 6.5 Lymphocytes # (Auto) 1.8 Monocytes # (Auto) 0.5 Eosinophils # (Auto) 0.0 Basophils # (Auto) 0.0 CBC Comment DIFF FINAL Differential Comment Blood Urea Nitrogen 14 Creatinine 0.93 Random Glucose 58 Calcium Level 8.7 Sodium Level 140 Potassium Level 3.5 Chloride Level 101 Carbon Dioxide Level 24.4 Anion Gap 15 Estimat Glomerular Filtration Rate 114 Radiology Last Impressions Abdomen/Pelvis CT 07/23/17 9213 Signed Impressions: Service Date/Time: July 22:50 - CONCLUSION: 1. Abnormal examination demonstrating a moderate amount of free fluid in the pelvis and multiple small collections of free air in the peritoneum predominantly in the right upper quadrant. The cause of the free air is not apparent from the examination, but the location and the right upper quadrant suggests possible upper GI origin.. 2. Induration of the fat with in a small umbilical hernia, but no loops of bowel within the hernia. Charles Tavares MD Narrative Exam NAD NG in place to suction with 500cc/24h dark brownish fluid with coffee grounds LATASHA to bulb suction cloudy serous output Abd: inc c/d/i, nondistended A/P Assessment and Plan 31 yo M POD 3 lap repair of perforated duodenal ulcer. Doing well post op. UGI with no leak. Cont LATASHA drain and NGT. Start clears and clamp ngt. Cont IV protonix and IV antibiotics. Yakov Bennett MD Jul 27, 2017 11:37
[2017-07-28] VITALS (8 sets, daily range): BP systolic 101–174; BP diastolic 66–95; PULSE 50–102; RESP 16–18; TEMP 97.5–98.7; O2SAT 95–100
[2017-07-28] MEDS: MORPHINE SULFATE 4 MG/ML INJ IV PUSH PRN ×2 (01:00→04:30)
[2017-07-28] MEDS: ENOXAPARIN SODIUM 40 MG/0.4 ML SYRINGE SQ SCH (02:18)
[2017-07-28] MEDS: SODIUM CHLOR 0.9% 1000 ML INJ 1,000 ML IV SCH (04:31)
[2017-07-28] MEDS: LACTATED RINGER'S 1000 ML INJ 1,000 ML IV SCH (04:31)
[2017-07-28] MEDS: PIPERACIL-TAZO 3.375 GM PREMIX 50 ML IV SCH ×3 (05:51→17:52)
[2017-07-28] MEDS: PANTOPRAZOLE SODIUM 40 MG VIAL IV PUSH SCH ×2 (08:48→20:45)
[2017-07-28] MEDS: SODIUM CHLORIDE 0.9% FLUSH 10 ML FLUSH IV FLUSH SCH ×2 (08:48→20:45)
--- NOTE | 2017-07-28 10:27 | HHI.PR ---
Subjective Subjective Notes No nausea. Tolerating clears with ng clamped. Has ambulated. Objective Vitals/I&O Vital Signs Date Time Temp Pulse Resp B/P (MAP) Pulse Ox O2 Delivery O2 Flow Rate FiO2 07/28/17 08:00 97.5 57 18 164/93 (116) 100 07/26/17 20:00 Room Air Radiology Last Impressions Abdomen/Pelvis CT 07/23/17 4343 Signed Impressions: Service Date/Time: July 22:50 - CONCLUSION: 1. Abnormal examination demonstrating a moderate amount of free fluid in the pelvis and multiple small collections of free air in the peritoneum predominantly in the right upper quadrant. The cause of the free air is not apparent from the examination, but the location and the right upper quadrant suggests possible upper GI origin.. 2. Induration of the fat with in a small umbilical hernia, but no loops of bowel within the hernia. Charles Tavares MD Narrative Exam NAD NG in place and clamped, 100cc residuals LATASHA to bulb suction serous output Abd: inc c/d/i, nondistended A/P Assessment and Plan 31 yo M POD 4 lap repair of perforated duodenal ulcer. Doing well post op. D/c NGT. Cont LATASHA. Start fulls. Cont IV protonix and IV antibiotics. Start reglan. Start norco. Anticipate d/c home tomorrow if tolerating fulls. Yakov Bennett MD Jul 28, 2017 10:26
[2017-07-28] MEDS ORDERED: ACETAMINOPHEN/HYDROcodone 325 MG/5 MG TAB PO PRN ×2 (10:30)
[2017-07-28] MEDS: METOCLOPRAMIDE HCL 10 MG/2 ML VIAL IV PUSH SCH ×2 (14:31→20:45)
[2017-07-29] MEDS: PIPERACIL-TAZO 3.375 GM PREMIX 50 ML IV SCH ×2 (00:18→05:34)
[2017-07-29] MEDS: SODIUM CHLORIDE 0.9% FLUSH 10 ML FLUSH IV FLUSH PRN ×2 (00:19→05:35)
[2017-07-29] MEDS: ENOXAPARIN SODIUM 40 MG/0.4 ML SYRINGE SQ SCH (01:56)
[2017-07-29 04:35] VITALS: BP 162/81; PULSE 72; RESP 16; TEMP 98.7; O2SAT 98
[2017-07-29] MEDS: METOCLOPRAMIDE HCL 10 MG/2 ML VIAL IV PUSH SCH (05:37)
[2017-07-29 08:00] VITALS: BP 140/93; PULSE 67; PULSE 69; RESP 19; TEMP 98.9; O2SAT 99
[2017-07-29] MEDS ORDERED: METR1TAB76 PO (08:53)
[2017-07-29] MEDS ORDERED: CIPR500T2 PO (08:53)
[2017-07-29] MEDS ORDERED: PANT40TA3 PO (08:53)
[2017-07-29] MEDS: PANTOPRAZOLE SODIUM 40 MG VIAL IV PUSH SCH (08:59)
[2017-07-29] MEDS: SODIUM CHLORIDE 0.9% FLUSH 10 ML FLUSH IV FLUSH SCH (08:59)
--- NOTE | 2017-07-29 12:29 | HHI.DS ---
Discharge Summary Admission Date Jul 24, 2017 at 00:07 Discharge Date: Jul 29, 2017 Admitting Diagnosis Bowel perforation (1) Perforated duodenal bulb ulcer ICD Codes: K26.5 - Chronic or unspecified duodenal ulcer with perforation Diagnosis: Principal Procedures Laparoscopic repair of perforated duodenal bulb ulcer Brief History Christiano is a 31-year-old male who complains of persistent severe abdominal pain for 2-3 days mostly centered around the umbilicus where he has an umbilical hernia which has been present since . He does occasionally have to reduce the umbilical hernia which he has been doing over the last couple of days as well. There is less of a bulge then there has been in the past, but the pain at the umbilicus is significantly worse. He had one episode of clear emesis after morphine administration in the ED but otherwise no vomiting. He does not use anti-inflammatories chronically. In the emergency department, he was noted by Dr. Henry to have diffuse rigidity. CBC reveals leukocytosis of 16, [address] of the abdomen and pelvis showed small amounts of free air mostly in the right upper abdomen and some free fluid present. The etiology is not obvious on CT. CBC/BMP: 07/27/17 0807 07/27/17 0807 Significant Findings Laboratory Tests Test 07/27/17 08:07 Neutrophils (%) (Auto) 73.0 % (16.0-70.0) Random Glucose 58 MG/DL (74-106) PE at Discharge NAD LATASHA to bulb suction serous output Abd: inc c/d/i, nondistended Hospital Course Post op was kept NPO with NGT to suction. POD 2 had UGI showing no leak. Started on clears and ngt removed the next day. By dc tolerating fulls and + BM. LATASHA removed prior to dc. Pt Condition on Discharge: Good Discharge Disposition: Discharge Home Discharge Instructions DIET: Follow Instructions for: As Tolerated, No Restrictions Activities you can perform: See Additionl Instruction Other Activity Instructions: Ok to shower tomorrow. Avoid heavy lifting. Follow up Referrals: Surgical - 2 Weeks with Yakov Bennett MD New Medications: Ciprofloxacin (Ciprofloxacin) 500 Mg Tab 500 MG PO BID for Infection, #10 TAB 0 Refills Metronidazole (Metronidazole) 500 Mg Tab 500 MG PO TID for Infection, #15 TAB 0 Refills Pantoprazole (Pantoprazole) 40 Mg Tab 40 MG PO BID for Reflux, #60 TAB 0 Refills DonaldYakov MD Jul 29, 2017 12:29
== END 2017-07-29 13:38 | disposition home or self-care (01) | DRG 326 ==
LOC: NEPD 21:49 → NEDA 07-24 00:07 → N06B 07-24 05:21
PROVIDERS: ADMIT Surgery; ATTEND Surgery
PROC: 0DQ94ZZ Repair Duodenum, Percutaneous Endoscopic Approach (ICD-10-PCS; principal; 2017-07-24 01:07)
DX: K26.5 Chronic or unspecified duodenal ulcer with perforation (principal); K65.0 Generalized (acute) peritonitis; K42.9 Umbilical hernia without obstruction or gangrene
CPT/HCPCS: 74176; 74240; 80048; 80053; 81001; 83690; 85025; 86850; 86900; 86901; 94150; 96361; 96365; 96375; 96376; C9113; J0131; J0330; J1100; J1170; J1650; J2250; J2270; J2405; J2543; J2710; J2765; J3010; J7030; J7120; Q9963